=== PATIENT | female | born 1955 | race African-American/Black ===

== ENCOUNTER 2025-03-22 14:21 | Emergency (ER) | payer MEDICARE ==
[~2025-03-22] VITALS: Ht 162.6 cm; Wt 91.0 kg
[2025-03-22 14:27] VITALS: O2SAT 97
[2025-03-22 16:16] LABS: BASOPHILS % 0.4 % (0.0-2.0); EOSINOPHILS % 1.8 % (0.0-5.0); HEMATOCRIT. 42.8 % (36.0-48.0); HEMOGLOBIN. 13.8 g/dL (12.0-16.0); LYMPHOCYTES % 39.1 % (20.0-50.0); MEAN PLATELET VOLUME 8.6 fl (7.4-10.4); MONOCYTES % 8.8 % (2.0-8.0); NEUTROPHILS % 49.9 % (40.0-76.0); PLATELET 207 x1000/uL (130-400); RED BLOOD CELL COUNT 4.54 mill/uL (4.2-5.4); RED CELL DISTRIBUTION WIDTH 15.2 % (11.6-14.6)
[2025-03-22 16:34] LABS: CREATININE 1.3 mg/dL (0.6-1.0); UREA NITROGEN BLOOD 14.0 mg/dL (9-23)
[2025-03-22] MEDS ORDERED: METR-167 MT (19:25)
[2025-03-22 19:40] VITALS: BP 208/131; PULSE 84; RESP 18; TEMP 37.3; O2SAT 96
== END 2025-03-22 19:50 | disposition home or self-care (01) ==
LOC: ER 14:21
DX: N76.0 Acute vaginitis (principal); B96.89 Other specified bacterial agents as the cause of diseases classified elsewhere; E78.00 Pure hypercholesterolemia, unspecified; H40.9 Unspecified glaucoma; I10 Essential (primary) hypertension
CPT/HCPCS: 36415; 76830; 76856; 80048; 85025; 87210; 99284